=== PATIENT | male | born 1960 | race Caucasian/White ===

== ENCOUNTER 2021-02-08 12:44 | Emergency (ER) | payer BC, SELFPAY ==
--- NOTE | 2021-02-08 12:50 | ED_ITS ---
HPI - Extremity Problem General Chief complaint: Extremity Problem,Nontraumatic Stated complaint: pain left leg/poss blood clot Time Seen by Provider: 02/08/21 12:50 History of Present Illness HPI Narrative: 60-year-old male smoker with noncontributory medical history presents with a chief complaint of some pain and swelling behind his left knee and up into his thigh. He recently traveled from out of [facility] and there is concern for clot. He denies any injury, fever or chills nor history of clot. He is not dizzy nor weak or lightheaded. He denies any chest pain or shortness of breath. Related Data Previous Rx's Medication Instructions Recorded apixaban 5 mg (74 tabs) tablets in See Rx Instructions .ROUTE 02/08/21 a dose pack (Tinybop DVT-PE Treat .COMPLEX #74 ea 30D Start) Allergies Allergy/AdvReac Type Severity Reaction Status Date / Time No Known Drug Allergies Allergy Verified 02/08/21 12:58 Review of Systems Review of Systems Narrative: GENERAL: Denies chills, fatigue, malaise, fever, sweats. HEENT: Denies sinus pain, ear pain, sore throat, difficulty swallowing, dizziness. RESPIRATORY: Denies dyspnea, cough, wheezing, hemoptysis, sputum. CARDIOVASCULAR: Denies chest pain, palpitations, orthopnea, edema, GASTROINTESTINAL: Denies nausea, vomiting, abdominal pain, diarrhea, constipation, melena. : Denies dysuria, frequency, incontinence, hematuria, urinary retention. MUSCULOSKELETAL: denies weakness, joint pain, or bony pain SKIN: See HPI NEUROLOGIC: Denies weakness, headache, numbness, change in speech, confusion, seizures, incoordination. PSYCHIATRIC: No concerning psychosocial issues. 12 point review of systems is negative except for those stated above Patient History Social History Smoking Status: Current some day smoker Exam Narrative Exam Narrative: GEN: AOx3 and in mild distress EYES: Pupils are equal, round, and reactive to light and accommodation. Extraoccular muscles are intact bilaterally. There is no subconjunctival hemorrhage or exudate. CHEST: Lungs are clear to auscultation bilaterally and free of wheezes, rales, or rhonchi. Heart rate is regular rhythm, there are no murmurs, clicks, rubs, or gallops. There is no chest wall tenderness. ABD: Abdomen is soft and nontender. There is no guarding or rebound. Bowel sounds are normal in all 4 quadrants. There is no mass or organomegaly. EXT: Full painless ROM of all extremities with no loss of sensation or strength. SKIN: Minimal redness, swelling, pain on palpation of medial L calf, politeal region and medial thight. Otherwise warm, pink, and dry. No erythema or rash Initial Vital Signs Initial Vital Signs: Vital Signs Pulse Rate 52 L 02/08/21 12:57 Pulse Oximetry 99 02/08/21 12:57 Course Orders Ordered: Discontinued Medications Apixaban (Apixaban 5 Mg Tablet) 10 mg PO NOW ONE Stop: 02/08/21 13:48 Last Admin: 02/08/21 14:07 Dose: 10 mg Documented by: PERI Vital Signs Vital signs: Vital Signs - 8 hr 02/08/21 12:58 Temperature 99.0 F Pulse Rate 53 L Respiratory Rate 18 Blood Pressure 145/91 H Pulse Oximetry 98 MDM - Extremity (Nontraumatic) Imaging Data US - DVT: Radiologist's Impression: [address] [id number] ReportSigned Patient: Miquel TapiaMR#: [id number]: 1960Acct:[id number]/Sex: 60 / MDate of Service: 02/08/21Loc: EDAccession Number: [id number] Procedure: [facility], [place] venous low extrem lt Ordering Provider: Yury Mitchell D.O. PROCEDURE: [facility] VENOUS LOW EXTREM LT INDICATIONS: PAIN SWELLING REDNESS AND TRAVEL TECHNIQUE: Real-time imaging, as well as color and pulse Doppler interrogation, were performed of the lower extremity deep veins from the inguinal ligament to the popliteal fossa. COMPARISON: None. FINDINGS: The common femoral, femoral and popliteal veins are normally compressible, and free of intraluminal thrombus. Color and pulse Doppler demonstrate normal phasic intraluminal flow. There is normal augmentation response to distal compression maneuver. Nonocclusive thrombosis identified in the greater saphenous vein at the level of the proximal thigh extending inferior into the lesser saphenous vein the level of the left mid calf. IMPRESSION: 1. No thrombus identified in the deep venous system of the left lower extremity. 2. Partially occlusive thrombus identified in the superficial venous system of the left lower extremity involving the greater saphenous vein in the lesser saphenous vein. Dictated by: Lelo Fiore MD, PhD on 02/08/2021 at 14:47 Approved by: Lelo Fiore MD, PhD on 02/08/2021 at 14:48 MDM Narrative Medical decision making narrative: Patient with pain and swelling of left lower extremity in the absence of injury. Given recent travel ultrasound was ordered and notes a large superficial thrombus without obvious involvement of the deep vein system. Given size of clot measuring greater than 5 cm in the greater saphenous vein patient was initiated on anticoagulation and encouraged to follow-up closely with his primary care provider when he gets back to [place]. Return precautions given and questions answered to his apparent satisfaction Discharge Plan Departure Patient Disposition: Home Clinical Impression: Superficial thrombophlebitis Qualifiers: Superficial thrombophlebitis-Involved body area: lower extremity Laterality: l eft Qualified Code(s): I80.02 - Phlebitis and thrombophlebitis of superficial vessels of left lower extremity Instructions: Phlebitis/DVT (Alternative Therapy) Activity Restrictions/Additional Instructions: *You have been diagnosed with [superficial clot in the veins of your left leg] *What to do: *Please continue to take your regular medications as directed. [ ] New medication prescriptions sent to your pharmacy: [ ] [x ] New medication written as a paper prescription [ ] No new medications given *Please follow up with your primary care provider in 2-3 days, call for an appointment. Let them know you were seen in the Emergency Department and that we ask that you be seen in follow up. We will electronically transmit a record of today's note if your PCP is in our system *If you do not have a primary care provider please contact the [facility] Resource line at [phone]. They will ask some questions about your medical history and help get you set up with a doctor in the community. *Return to Emergency Department if you should have any new, worsening or concerning symptoms, such as [fever greater than 101 F, shaking chills, worsening pain, persistent vomiting or other bothersome symptoms] Prescriptions: New Eliquis DVT-PE Treat 30D Start 5 mg (74 tabs) tablets,dose pack See Rx Instructions .ROUTE .COMPLEX Qty: 74 RF: 0
[2021-02-08 12:57] VITALS: PULSE 52; O2SAT 99
[2021-02-08 12:58] VITALS: BP 145/91; PULSE 53; RESP 18; TEMP 37.2; O2SAT 98; BMI 32.8
[2021-02-08 13:00] VITALS: PULSE 67; O2SAT 98
[2021-02-08 13:01] VITALS: BP 131/79; PULSE 58; O2SAT 98
--- NOTE | 2021-02-08 13:04 | DI.US.S_ITS ---
PROCEDURE: US PERIPH VENOUS LOW EXTREM LT INDICATIONS: PAIN SWELLING REDNESS AND TRAVEL TECHNIQUE: Real-time imaging, as well as color and pulse Doppler interrogation, were performed of the lower extremity deep veins from the inguinal ligament to the popliteal fossa. COMPARISON: None. FINDINGS: The common femoral, femoral and popliteal veins are normally compressible, and free of intraluminal thrombus. Color and pulse Doppler demonstrate normal phasic intraluminal flow. There is normal augmentation response to distal compression maneuver. Nonocclusive thrombosis identified in the greater saphenous vein at the level of the proximal thigh extending inferior into the lesser saphenous vein the level of the left mid calf. IMPRESSION: 1. No thrombus identified in the deep venous system of the left lower extremity. 2. Partially occlusive thrombus identified in the superficial venous system of the left lower extremity involving the greater saphenous vein in the lesser saphenous vein. Dictated by: Lelo Fiore MD, PhD on 02/08/2021 at 14:47 Approved by: Lelo Fiore MD, PhD on 02/08/2021 at 14:48
[2021-02-08 13:30] VITALS: BP 134/63; PULSE 58; RESP 20; O2SAT 96
[2021-02-08 14:00] VITALS: BP 128/73; PULSE 53; RESP 16; O2SAT 94
[2021-02-08] MEDS: APIXABAN 5 MG TABLET 10 MG PO (14:07)
== END 2021-02-08 14:25 | disposition home or self-care (01) ==
PROVIDERS: Emergency Provider Emergency Medicine
DX: I80.02 Phlebitis and thrombophlebitis of superficial vessels of left lower extremity (principal); Z79.01 Long term (current) use of anticoagulants
CPT/HCPCS: 93005; 93041; 93971; 99284